=== PATIENT | male | born 1985 | race Caucasian/White ===

== ENCOUNTER 2017-10-22 13:41 | Emergency (ER) | payer MEDICAID ==
[~2017-10-22] VITALS: Ht 172.7 cm; Wt 99.8 kg
[2017-10-22] MEDS: Fluorescein Strips BOTH EYES ONE (14:13)
[2017-10-22] MEDS: Tetracaine 0.5% Opth 4ml Soln RIGHT EYE ONE (14:13)
[2017-10-22] MEDS ORDERED: ERYTHROMYCIN3.5 GM RIGHT EYE (14:56)
--- NOTE | 2017-10-22 14:57 | Emergency Room Report ---
History of Present Illness General Chief Complaint: Eye Problems Source: Patient Present Illness HPI Patient presents today with complaints of right eye pain began prior to arrival. Patient states he was cleaning when she dropped the ground and hit reduced his right eye. He is now complaining of right eye pain 10 in severity, no medications were taken. He denies any changes in vision. Patient complaining of associated photophobia. Denies fever, chills or associated symptoms. Allergies: Coded Allergies: PENICILLINS (Verified Allergy, Unknown, 10/22/17) Patient History Reviewed Nursing Documentation: PMH: Agreed, PSxH: Agreed Nursing Documentation-PM Past Medical History: No History, Except For Hx Hypertension: Yes Review of Systems Eye: Reports: eye pain All Other Systems: negative except mentioned in HPI Physical Exam Vital Signs Date Time Temp Pulse Resp B/P (MAP) Pulse Ox O2 Delivery O2 Flow Rate FiO2 10/22/17 13:49 98.2 80 16 161/121 99 Room Air Sp02 EP Interpretation: reviewed, normal General Appearance: no apparent distress, alert, GCS 15, non-toxic Head: normocephalic, atraumatic Eyes: right eye fluoroscene uptake, bilateral eye normal inspection, bilateral eye PERRL ENT: hearing grossly normal, normal pharynx, no angioedema, normal voice Neck: full range of motion, supple/symm/no masses Respiratory: chest non-tender, lungs clear, normal breath sounds, speaking full sentences Cardiovascular #1: regular rate, rhythm, no edema Cardiovascular #2: 2+ carotid (R), 2+ carotid (L), 2+ radial (R), 2+ radial (L) , 2+ dorsalis pedis (R), 2+ dorsalis pedis (L) Gastrointestinal: normal bowel sounds, non tender, soft, non-distended, no guarding, no rebound Rectal: deferred Genitourinary: normal inspection, no CVA tenderness Musculoskeletal: back normal, gait/station normal, normal range of motion, non- tender, calf tenderness Neurologic: alert, oriented x3, responsive, motor strength/tone normal, sensory intact, speech normal Psychiatric: judgement/insight normal, memory normal, mood/affect normal, no suicidal/homicidal ideation Reflexes: 3+ bicep (R), 3+ bicep (L), 3+ tricep (R), 3+ tricep (L), 3+ knee (R) , 3+ knee (L) Skin: normal color, no rash, warm/dry, well hydrated Lymphatic: no adenopathy Procedures Eye Procedure Eye Procedure : Consent: Verbal Alcaine Drops Administered: Yes Eye Irrigated w/ Saline (ccs): 10 Cyclogel 2 Drops Administered: right eye Patient Tolerated: Well Complications: None Progress Relief with tetracaine. Negative snowglobe sign. Intraocular pressure is 17 and 19 and right-sided. Corneal abrasion noted at the 3:00 position on the right Medical Decision Making PA Attestation supervising physician Dr. Bates Diagnostic Impression: Primary Impression: Corneal abrasion, right ER Course Patient have a corneal abrasion of the right eye. No evidence of globe rupture and no foreign body is present. The patient is discharged home with erythromycin ointment and instructed to followup for reevaluation. The patient understands and is agreeable with plan Last Vital Signs Date Time Temp Pulse Resp B/P (MAP) Pulse Ox O2 Delivery O2 Flow Rate FiO2 10/22/17 13:49 98.2 80 16 161/121 99 Room Air Status: improved Disposition: HOME, SELF-CARE Condition: Stable Scripts Erythromycin Base (ERYTHROMYCIN*) 3.5 Gm Oint...g. 1 APPLIC RIGHT EYE QID, #3.5 GM 0 Refills Prov: Yvonne De León 10/22/17 Patient Instructions: Corneal Abrasion, [id number] Yvonne De León Oct 22, 2017 14:57
[2017-10-22 15:02] VITALS: BP 150/90
[2017-10-22 15:03] VITALS: BP 150/90
== END 2017-10-22 15:05 | disposition home or self-care (01) ==
LOC: EMR 14:22
DX: S05.01XA Injury of conjunctiva and corneal abrasion without foreign body, right eye, initial encounter (principal); X58.XXXA Exposure to other specified factors, initial encounter; Y92.9 Unspecified place or not applicable; I10 Essential (primary) hypertension; Z88.0 Allergy status to penicillin
CPT/HCPCS: 99283